=== PATIENT | female | born 1950 | race Caucasian/White ===

== ENCOUNTER 2016-10-18 05:41 | Inpatient (IN) | payer MEDICARE ==
--- NOTE | 2016-10-17 12:58 | PCM.ANEPRE ---
Anesthesia Pre-Op Review Reason for Review: AICD, ECHO-EF 35-40% Anesthesia Recommendations: Proceed with Procedure Additional Comments 66 yo for carotid endarterectomy. Patient has hx of CAD with ischemic cardiomyopathy. CABGx3 in 10/2015, followed by ICD placement later that year. Last EF from 04/2016 measured to be 35%. Patient saw elevator pilot preoperatively on 09/16 and was noted to be doing well from a cardiac standpoint. Would proceed with DOS eval and CIED interrogation form completed by cardiology. Chart Reviewed by: Marc Hamilton MD Oct 17, 2016 12:58
[2016-10-18] VITALS (13 sets, daily range): BP systolic 95–148; BP diastolic 37–80; PULSE 44–60; RESP 13–18; O2SAT 93–100
[~2016-10-18] VITALS: Ht 162.6 cm; Wt 79.8 kg
[2016-10-18] MEDS: Lactated Ringer's 1,000 ML IV SCH ×4 (05:00→08:45)
[~2016-10-18 05:41] MED LIST: ASPI81TA3 PO; CARV25TA2 PO; LIP40 PO; LISI2.5T PO; NITR0.4T6 SL
[2016-10-18] MEDS ORDERED: CeFAZolin Inj 2 GM in IV Premix 1 EACH IV ONE (06:00)
[2016-10-18] MEDS ORDERED: Lactated Ringer's 1,000 ML IV SCH (07:21)
[2016-10-18] MEDS ORDERED: Lactated Ringer's 500 ML IV PRN (07:21)
--- NOTE | 2016-10-18 07:21 | PCM.HPANE ---
Patient Data Date of Service: Oct 18, 2016 (0719) Surgeon Admitting Provider: Attending Provider:Markus Trejo MD Primary Care Physician:Mikey Cook MD Other Provider:Yuly Oliveira Anesthesia Reason for Visit Carotid Stenosis Ht/WT & BMI Height (Feet): 5 Height (Inches): 4 Weight (Kilograms): 79.3 Body Mass Index 29.00 Allergies Coded Allergies: No Known Allergies (Unverified , 10/17/16) Past Anesthesia History Anesthesia History: Denies:: Anesthesia Reactions, Malignant Hyperthermia Diabetes History Hx Diabetes?: No Current Bedside Blood Glucose: 127 MRSA MRSA: No Medications Blood Thinner: Aspirin Hypertension Medication: Yes (LISINOPRIL) Home Meds Incl Beta Perla: Yes Date Beta Perla Taken: Oct 18, 2016 Time Beta Perla Taken: 429 Reported Medications Lisinopril 2.5 Mg Tablet2.5 Mg PO DAILY 30 Days Ref 0 04/25/16 Carvedilol 25 Mg Ycersp36 Mg PO BID Ref 0 04/25/16 Nitroglycerin SL 0.4 Mg Tab.subl0.4 Mg SL PRN PRN For Chest Pain 01/08/16 Atorvastatin (Lipitor)40 Mg Dlsvxd14 Mg PO DAILY Ref 0 01/08/16 Aspirin Chew 81 Mg Chew81 Mg PO DAILY Ref 0 01/08/16 Discontinued Reported Medications Spironolactone 25 Mg Ipralx41.5 Mg PO DAILY #30 TABLET Ref 0 04/25/16 Discontinued Scripts Hydrocodone-Acetaminophen 5-325 mg 1 Each Tablet1 Tablet PO Q4H PRN For Pain # 10 TABLET Ref 0 Prov:Jessee Becerra PA-C 04/27/16 Cephalexin 500 Mg Zivlgrl181 Mg PO BID #14 CAPSULE Ref 0 Prov:Jessee Becerra PA-C 04/27/16 History History of ENT Problems?: Yes Denture Type: Full- Upper Hx of Heart Problems?: Yes Cardiovascular History: Positive for:: AICD (S/P 04/2016) Cardiac Surgery (S/P CABG x 3 10/2015 [facility] KEYS) Chest Pain Coronary Artery Disease (CARDIIOMYOPATHY) Hypertension (HYPERLIPIDEMIA) Peripheral Vascular (RT CAROTID SRENOSIS (R-80%,L-70%)=CURRENT PROBLEM) Denies:: Congestive Heart Failure Heart Murmur (ECHO 04/2016 EF 35-40%) Irregular Heartbeat Valvular Heart Disease Other Cardiac History: HX OF ANEMIA Hx of Respiratory Problem?: Yes Respiratory History: Positive for:: COPD Chest Surgery Denies:: Asthma Emphysema Tuberculosis Use of C-PAP Machine Hx Neurologic Problems?: No Neurological History: Denies:: CVA Parkinson's Disease Seizures Other History/Comments right carotid 80% stenosis Hx of GI Problems?: No Hx of Problems?: Yes Genitourinary History: Denies:: HX of Hemodialysis (HX OF RENAL INSUFFICIENCY) Kidney Stones Female Hx: Denies:: Currently Endometriosis Pelvic Inflammatory Problems with Breasts? Skin History: Denies:: History Skin Disorders? Pressure Ulcers Hx Musculoskeletal Problems?: No Musculoskeletal History: Denies:: Back Injury Hx of Psycho/Social Problems?: No Hx Surgeries?: Yes (CABG,AICD) Hx Any Other Health Problems?: Yes Other History: Positive for:: Hospitalization (CARDIAC) Denies:: Cancer Endocrine Disease Thyroid Disease History Blood Transfusions: Denies:: Blood Transfusions Hx Diabetes: NoBedside Blood Glucose: 127 Hx Alcohol Use: NoHx Substance Use: No Smoking Status: Current Every Day Smoker Have You Smoked inLast 12 mo: YesApprox How Many Cigarettes/day: 1 PPD X 40YRS Stop/Bang S-Snoring: Do You Snore Loudly: Yes T-Tired: feel tired, fatigued: No O-Obsered: Observed not breath: No P-Blood Pressure: treated: Yes B- Body Mass Index > 35 kg/m2: No A- Age over 50: Yes N- Neck Large Circumference: No G- Gender Male: No CLAY Total Score: 3 CLAY Risk Assessment: Low Risk, <3 Yes Risk Assessment Category Category 1A: Patient has history of documented sleep apnea, and HAS NOT received any narcotic, sedative or anesthesia administration during this stay. Category 1B: Patient has history of documented sleep apnea, and HAS received any narcotic , sedative or anesthesia administration during this stay Category 2: Patient has SUSPECTED Obstructive Sleep Apnea, and HAS received any narcotic , sedative or anesthesia administration during this stay. Category 3: Patient has SUSPECTED Obstructive Sleep Apnea and HAS NOT received narcotic, sedative or anesthesia administration during this stay. Category 4: Outpatient in Procedural Areas with known sleep apnea or who screen positive for High Risk via the STOP/BANG questionnaire. Exam Exam Vital Signs Vital Signs Date Time Temp Pulse Resp B/P Pulse Ox O2 Delivery O2 Flow Rate FiO2 4/18/17 06:44 36.3 60 17 148/80 93 Room Air General Appearance: Alert, Oriented X3, Cooperative HEENT/AIRWAY: MP 1 Lungs: Clear to Auscultation Heart: Exam Unremarkable Meds/Labs/Diagnostics Admission Meds Current Medications Lactated Ringer's (Lr) 1,000 ml @ 120 mls/hr Q8H20M IV Last administered on t 06:35; Start 10/18/16 at 05:00; Stop 10/18/16 at 13:19 Bedside Blood Glucose: 127 Plan Impression Patient chart reviewed, patient interviewed and anesthestic plan with risks, benefits, and alternatives discussed, and informed consent obtained. NPO Status: 2100 10/17/16 ASA Physical Status: ASA3 Severe Disease Anesthetic Support Modalities: Arterial Line Anesthetic Plan: GA Bene/Risks/Altern/Consents: Yes HP Complete Prior to Induction: Yes Alfredo Schaeffer MD Oct 18, 2016 07:21
[2016-10-18] MEDS ORDERED: EPHEDrine Sulfate 50 mg/mL Inj IVPUSH PRN (07:25)
[2016-10-18] MEDS ORDERED: Phenylephrine 10,000 mCg/mL Inj IVPUSH PRN (07:25)
[2016-10-18] MEDS ORDERED: HYDROmorphone 1 mg/mL Inj IVPUSH PRN (07:25)
[2016-10-18] MEDS ORDERED: fentaNYL-PF 50 mCg/mL 2 mL Inj IVPUSH PRN (07:25)
[2016-10-18] MEDS ORDERED: MetoCLOpramide 5 mg/mL 2 mL Inj IVPUSH PRN (07:25)
[2016-10-18] MEDS ORDERED: Ondansetron 2 mg/mL 2 mL Inj IVPUSH PRN ×2 (07:25→10:35)
[2016-10-18] MEDS ORDERED: Dexamethasone 4 mg/mL Inj IVPUSH PRN (07:25)
[2016-10-18] MEDS ORDERED: Bupivacaine-MPF 0.5% W/EPI 30 mL Inj INJ ONE (08:19)
[2016-10-18] MEDS ORDERED: Heparin 1,000 Unit/mL 10 mL Inj IRRIGATION ONE (08:20)
--- NOTE | 2016-10-18 10:11 | PCM.ANEP1 ---
Post Anesthesia Phase 1 PACU Phase 1 Assessment Date of Service: Oct 18, 2016 (0719) Vital Signs 55, 16, 116/58, 100%, 37.1 Vital Signs Date Time Temp Pulse Resp B/P Pulse Ox O2 Delivery O2 Flow Rate FiO2 10/18/16 06:44 36.3 60 17 148/80 93 Room Air Anesthetic Administered: GA Level of Alertness: Awake, talking GUERRERO's with Equal Strength: Yes Pain: No Nausea or Vomiting: No Cardiovascular Function and Hy: Yes Oxygen Delivery: Simple Mask Lungs: Clear to Auscultation Dermatome Level: Full Sensation Summary UNEVENTFUL GETA. HDS. GUERRERO Complications: No Follow up Care: No Alfredo Schaeffer MD Oct 18, 2016 10:11
--- NOTE | 2016-10-18 10:56 | OP ---
[address] [address] OPERATIVE REPORT PATIENT: JUVENAL HERNANDEZ : 1950 MR#: [id number] ADMIT: 10/18/2016 JOB ID: [id number] DATE OF SURGERY: 10/18/2016 PREOPERATIVE DIAGNOSIS(ES): Severe asymptomatic right internal carotid stenosis. POSTOPERATIVE DIAGNOSIS(ES): Severe asymptomatic right internal carotid stenosis. PROCEDURE: Right carotid endarterectomy with shunt and patch. SURGEON: Markus Trejo MD. PLUMBERS AND TOP HELPERS: Debby Pozo MD. INDICATIONS: A 66-year-old female, who has a history of coronary artery disease and has a severe asymptomatic right internal carotid stenosis by CT angiogram as 80%. She has a 70% stenosis on the left. After discussing options with the patient, it was elected to proceed with a right carotid endarterectomy with shunt and patch. FINDINGS: She had a severe stenosis as described. She had normal inflow from the right common carotid artery and pulsatile backflow from the right internal carotid artery. At the conclusion of the operation, she had no evidence of an intraoperative stroke or TIA. DESCRIPTION OF PROCEDURE: At the beginning and end of the operation, the SCOAP checklist was completed. A general endotracheal anesthetic was induced. She had an arterial line placed. Her neck was extended, rotated to the left and using ChloraPrep, prepped and draped in the usual fashion. A magnet was placed on her pacemaker defibrillator. She had taken aspirin preoperatively, and she received intravenous antibiotics. The incision was designed paralleling the anterior border of the right sternocleidomastoid muscle. It was injected with 0.5% bupivacaine with epinephrine. Cautery was used to divide the platysma, and dissection was carried down medial to the sternocleidomastoid muscle. The common facial vein was identified, exposed. It was clamped, divided and suture ligated with 3-0 silk suture ligatures. Another smaller medial branch was ligated with 3-0 silk. The common carotid artery was identified and dissection then extended distally. In doing so, the ansa cervicalis was identified but I was able to preserve it by retracting it with a vessel loop. The carotid bifurcation was then exposed. The external carotid and superior thyroid arteries were exposed and controlled with vessel loops. The common carotid was then controlled with a vessel loop and then the distal dissection of the internal carotid was performed feeding well beyond the plaque and controlling it with a vessel loop. She was then heparinized with 6000 units of intravenous heparin (approximately 80 units/kg). After 5 minutes, she was occluded distally, then proximally. A common carotid arteriotomy made, and the arteriotomy extended through the plaque onto the normal internal carotid. A Pham shunt was placed first distally, then proximally. The endarterectomy was performed. There was no distal intimal flap. The endarterectomy occurred very nicely and there were really no filaments left that had to be removed separately. The arteriotomy was then closed with a bovine pericardial patch with running 6-0 Prolene. Prior to completing closure of the patch, the shunt was removed first proximally, then distally. The artery was flushed with heparinized saline and closure of the patch was completed. The internal carotid was first backflushed, followed by flushing the common carotid up the external carotid. That process was repeated and then again after flushing first up the external carotid, antegrade flow up the internal carotid was allowed. There was no bleeding from the suture line. There was no evidence of intimal dissection distally, and there was no palpable thrill. The suture line was covered with FloSeal. The platysma was closed with running 3-0 Vicryl. Skin with running subcuticular 4-0 Vicryl. Dermabond was then applied. The estimated blood loss was 20 cc. There were no apparent complications. As stated above before leaving the operating room, she was moving both her left upper and lower extremities. The final sponge, needle and instrument counts were announced as correct, and she was returned to the recovery room in stable condition. Critical assistance provided by Dr Debby Pozo MD [facility]
[2016-10-18] MEDS ORDERED: EPHEDrine/NS 5 mg/mL 5 mL Syringe ONE (12:44)
[2016-10-18] MEDS ORDERED: Vasopressin 20 Unit/mL Inj ONE (12:44)
[2016-10-18] MEDS ORDERED: Phenylephrine/NS 100 mCg/mL 10 mL Syringe IVPUSH ONE (12:44)
[2016-10-18] MEDS ORDERED: Dexamethasone 4 mg/mL Inj ONE (12:44)
[2016-10-18] MEDS ORDERED: Rocuronium 10 mg/mL 5 mL Inj ONE (12:44)
[2016-10-18] MEDS ORDERED: fentaNYL-PF 50 mCg/mL 2 mL Inj ONE (12:44)
[2016-10-18] MEDS ORDERED: Ondansetron 2 mg/mL 2 mL Inj ONE (12:44)
[2016-10-18] MEDS ORDERED: Propofol 10,000 mCg/mL 20 mL Inj ONE (12:44)
[2016-10-18] MEDS: Dextrose 5% Lactated Ringer's 1,000 ML IV SCH (12:52)
[2016-10-18] MEDS: HYDROcodone-APAP 5-325 mg Tablet PO PRN ×2 (12:55→21:03)
[2016-10-19 00:25] VITALS: PULSE 57
[2016-10-19] MEDS: Dextrose 5% Lactated Ringer's 1,000 ML IV SCH ×2 (01:59→11:24)
[2016-10-19 03:09] VITALS: BP 118/65; PULSE 52; RESP 16; O2SAT 97
--- NOTE | 2016-10-19 07:31 | NUR ---
Activity Pain managed with 1 hydrocodone this noc shift. Pt utilizes ice at neck incision, it is CDI with glue some bruising. General diet tolerated, no N/V. Pt on tele, S 40-50s- paced to maintian >40bpm. Iv infusing D5LR at 80. Monitor BP for hypotension per pacu 101/43. Pt states no SOB or chest pain. Up to bedside commode, no ambulation until PT eval. Care continues
[2016-10-19 08:26] VITALS: BP 127/76; PULSE 51; RESP 18; O2SAT 96
--- NOTE | 2016-10-19 10:03 | PCM.DISURG ---
Surgical Discharge Instruction Date of Service Oct 19, 2016 Dates of Hospitalization Date of Hospital Admission Oct 18, 2016 at 12:08 Providers Admitting Physician: Markus Trejo MD Primary Care Physician: Mikey Cook MD Attending Physician: Markus Trejo MD Diet Discharge Diet: No restrictions Activity Discharge Activity-General: No restrictions, No driving while taking narcotic, May drive in (~3 days) Dressing and Incisional Care Hygiene: May shower Follow Up Plan Follow-up Provider (F9): Markus Trejo MD Follow-up appointment: Days (7-14 days) Markus Trejo MD Oct 19, 2016 10:03
--- NOTE | 2016-10-19 10:36 | DIS ---
[address] [address] DISCHARGE SUMMARY PATIENT: JUVENAL HERNANDEZ : 1950 MR#: [id number] ADMIT: 10/18/2016 JOB ID: [id number] DIS: 10/19/2016 DISCHARGE DIAGNOSES: 1. Severe asymptomatic right internal carotid stenosis. 2. 70% stenosis left internal carotid stenosis. 3. Coronary artery disease with ischemic cardiomyopathy. 4. Implantable cardioverter-defibrillator device. 5. Hypertension. 6. Hyperlipidemia. 7. History of two coronary artery bypass graft x3, October 2015. OPERATION: Right carotid endarterectomy with shunt and patch. HOSPITAL COURSE: On the day of admission, the patient underwent a right carotid endarterectomy with shunt and patch. See operative report for details. Postoperatively, she had no complications. She had stable vital signs. She never exhibited hypotension. She was on telemetry. She had no issues with ambulation. She had no neurologic deficits or TIAs. This morning, the day of discharge, she was up walking without limitation. Temperature 36.6, brachial blood pressure 127/76, pulse 51, respiratory rate 18, O2 sat room air 96%. Neck: No carotid bruit. Incision healing well. No hematoma and minimal swelling or ecchymosis. Neurologic examination: Intact. No deficits. DISPOSITION: She is discharged to home today. She is discharged on all her usual medications includin. Atorvastatin 40 mg daily. 2. Carvedilol 25 mg b.i.d. 3. Lisinopril 2.5 mg daily. 4. Nitroglycerin p.r.n. 5. Aspirin 81 mg daily. She is having no pain. She is discharged on no narcotics and will use ice and acetaminophen for pain. She will return to see me in 1-2 weeks.
[2016-10-19 10:50] VITALS: PULSE 45
[2016-10-19 11:16] VITALS: BP 109/72; PULSE 60; RESP 18; O2SAT 97
--- NOTE | 2016-10-19 11:52 | NUR ---
Social Work - Initial Assessment/Discharge: Data: EMR reviewed. Pt is a 66 y/o female who was admitted for carotid. stenosis per H&P. Pt's insurance is [employer] and her PCP is Mikey Cook MD. SW met with Pt and explained role. Pt does not have intermediate teacher care insurance or VA benefits. Pt has no history of HH but has had history of SNF services. Pt resides at home alone where she remains independent. Pt drives and does not use any DME. SW discussed DPOA/ advanced directive and Pt declined further information. Pt's sister to provide transport home at discharge. SW provided phone number and plan on white board in room. No anticipated discharge needs. SW will continue to follow if needs arise. Assessment:Pt who is independent at baseline. Plan:Pt to discharge home today via POV. No anticipated discharge needs. SW will continue to follow if needs arise. SHARDA Sparrow Addendum: 10/19/16 at 1155 by PETROS JUNIOR Amended: Links added.
--- NOTE | 2016-10-19 12:30 | NUR ---
Discharge To home with sister via private vehicle at 12:30. Steady ambulation to front door to wait for sister. IV discontinued intact. VSS. Pt states she feels "rarin' to go" and does not want to wait in room. I spoke with sister, who states she is "almost there." All belongings sent with pt. Pt expresses understanding of all discharge instructions and care notes.
== END 2016-10-19 12:45 | disposition home or self-care (01) | DRG 39 ==
LOC: SAS 05:41 → OSC 12:08
PROVIDERS: ADMIT Surgery; ATTEND Surgery
PROC: 03UK0KZ Supplement Right Internal Carotid Artery with Nonautologous Tissue Substitute, Open Approach (ICD-10-PCS; 2016-10-18)
PROC: 03CK0Z6 (ICD-10-PCS; principal; 2016-10-18 07:30)
DX: I65.21 Occlusion and stenosis of right carotid artery (principal); I25.5 Ischemic cardiomyopathy; I10 Essential (primary) hypertension; E78.5 Hyperlipidemia, unspecified; I25.10 Atherosclerotic heart disease of native coronary artery without angina pectoris; Z95.1 Presence of aortocoronary bypass graft; Z79.82 Long term (current) use of aspirin; Z95.810 Presence of automatic (implantable) cardiac defibrillator